=== PATIENT | female | born 1965 | race Caucasian/White ===

== ENCOUNTER 2021-01-28 06:56 | Observation (INO) | payer OTHER ==
[~2021-01-28] VITALS: Ht 12.7 cm; Wt 90.1 kg
--- NOTE | ~2021-01-28 | P ---
[facility] [place] [address] PROCEDURE REPORT Name: PJ HERRON Room #: 210-P [facility].Delta#: [id number] Admission: 01/28/21 Attend Phys: Tim Garcia MD Discharge: 01/29/21 Date of : 61 Report #: [id number] THIS REPORT FOR: cc: Sandra Garvin Pamela D. DO Couchonnal, Luis F. MD ~ DATE OF SERVICE: 01/28/2021 ICD IMPLANTATION PREOPERATIVE DIAGNOSIS: Nonischemic cardiomyopathy. POSTOPERATIVE DIAGNOSIS: Nonischemic cardiomyopathy. HISTORY: The patient is a 55-year-old with history of nonischemic cardiomyopathy, here for ICD implantation for primary prevention of sudden cardiac . ANESTHESIA: The patient underwent MAC anesthesia with no anesthesia related complications. DESCRIPTION OF PROCEDURE: The patient underwent informed consent. We discussed the details of the procedure including the risks, which include but not limited to bleeding, infection, vascular damage, cardiac perforation, and pneumothorax. She understood these risks and is willing to proceed. The patient was brought to EP laboratory in fasting and sedated state, prepped and draped in a sterile fashion, underwent venogram showing patency of left axillary vein and received IV antibiotics prior to initiation of the procedure. Next, lidocaine was injected below the level of left clavicle. Incision was made, pocket was created over the prepectoral fascia and access obtained twice to left axillary vein and sheaths positioned using the modified Seldinger technique. Next, leads were positioned in the right ventricular apex and right atrial appendage both with adequate pacing and sensing thresholds and were sutured to the prepectoral fascia using Ethibond suture. The pocket was then irrigated with vancomycin. Device connected. Tug test performed. Pocket closed in 2 layers using 2-0 for the deep layer, 3-0 for the mid layer and surgical glue was placed to outer skin layer. The patient awoke neurologically and hemodynamically intact. No complications and no significant bleeding. The implanted defibrillator and leads were by [employer]. The defibrillator was a Primo MRI compatible device with a serial #[id number]. Atrial lead was a 5076, 52 cm, serial #[id number]. RV lead was a, 6935, 62 cm, serial #[id number]. Atrial lead demonstrated P-wave of 1 millivolt, pacing impedance 390 ohms, pacing threshold 0.4 volts at 0.4 milliseconds. The RV lead demonstrated R wave of 10 millivolts, pacing impedance of 475 ohms and a pacing threshold of 0.75 [facility] [address] [place] [address] PROCEDURE REPORT Name: PJ HERRON Room #: 210-P [facility]..#: [id number] Admission: 01/28/21 Attend Phys: Tim Garcia MD Discharge: 01/29/21 Date of : 61 Report #: [id number] volts at 0.4 milliseconds. The device was programmed to the DDD 60-130 mode. The VT zone was set at 180-220 beats per minute with 3 rounds of burst followed by 3 rounds of ramp followed by max output shocks. VF zone was set at greater than 220 beats per minute with ATP while charging followed by max output shocks. CONCLUSIONS: Successful ICD implantation. By: [id number] Tim Garcia MD /nt
[~2021-01-28 06:56] MED LIST: ALDACTONE25 MG PO; ASPIRIN EC81 M1 PO; COREG PO; FUROSEMIDE 40 M40 M1 OR; LISINOPRIL20 MG PO; MULTIVITAMINS PO; POTASSIUM20 PO
[2021-01-28 08:30] VITALS: BP 112/67
[2021-01-28] MEDS ORDERED: ZETIA10 MG PO (08:39)
[2021-01-28] MEDS ORDERED: SYNTHROID100 MC1 PO (08:39)
[2021-01-28] MEDS ORDERED: TOPROL XL25 MG PO (08:40)
[2021-01-28] MEDS ORDERED: CRESTOR40 MG PO (08:40)
[2021-01-28] MEDS ORDERED: TRAMADOL 50 MG50 MG PO (08:41)
[2021-01-28 08:42] LABS: BASOPHILS 0.6 % (0.0-2.0); EOSINOPHILS 2.2 % (0.0-3.0); HEMATOCRIT 36.6 % (37.0-47.0); HEMOGLOBIN 11.8 gm/dL (12.0-15.0); LYMPHOCYTES 28.6 % (24.0-44.0); MCH 29.9 pg (26.0-34.0); MCHC 32.2 g/dL (28.0-37.0); MCV 92.9 fL (80.0-100.0); PLATELET COUNT 179 thou/uL (150-400); POLYS 59.6 % (36.0-66.0); RBC 3.94 mil/uL (4.20-5.00); RDW 17.2 % (10.5-14.5); WBC 8.5 thou/uL (4.0-11.0)
[2021-01-28] MEDS ORDERED: COLACE100 MG PO (08:43)
[2021-01-28] MEDS ORDERED: APPLE CIDER VI300 MG PO (08:43)
[2021-01-28 08:51] LABS: CALCIUM 9.1 mg/dL (8.5-10.1); CREATININE 1.8 mg/dL (0.6-1.0); POTASSIUM 3.5 mmol/L (3.5-5.1)
[2021-01-28 08:58] LABS: ALBUMIN 3.5 g/dL (3.4-5.0); TOTAL BILIRUBIN 0.4 mg/dL (0.2-1.0); TOTAL PROTEIN 6.8 g/dL (6.4-8.2)
[2021-01-28 09:04] LABS: APTT 21.5 Seconds (24.5-32.8); INR 0.9; PROTIME 9.6 Seconds (9.3-11.4)
[2021-01-28 12:20] VITALS: BP 115/74
--- NOTE | 2021-01-28 12:28 | NUR ---
RECEIVED PT FROM THE GROUNDS WORKER. PT RECEIVED PPM, DDD/ICD. ADMISSION COMPLETED. PT IS ON 24HR BEDREST. FALL PREACUTIONS IN PLACE.
[2021-01-28 19:54] VITALS: BP 114/65
[2021-01-28 20:00] VITALS: BP 114/65
[2021-01-28 23:16] VITALS: BP 129/77
[2021-01-29] VITALS: BP 129/77
[2021-01-29 04:12] VITALS: BP 130/77
--- NOTE | 2021-01-29 05:58 | NUR ---
ASSUMED PT CARE AT CHANGE OF SHIFT, SR ON THE MONITOR, C/O PAIN TO THE LEFT ARMPIT, PRN PAIN MEDS GIVEN WITH RELIEF,DENIES SOB OR CHEST PALPITATIONS, VSS, PACE MAKER INCERTION SITE TO THE LEFT CHEST INTACT, LEFT HAND IMMOBILIZER ONPT WENT FOR CHEST XRAY, DENIES CONCERNS AT THIS TIME, WILL CONTINUE TO MONITOR AND PASS ON REPORT
[2021-01-29] MEDS ORDERED: COREG6.25 MG PO (07:50)
[2021-01-29 09:30] VITALS: BP 118/70
[2021-01-29 10:55] VITALS: BP 131/90
--- NOTE | 2021-01-29 11:26 | NUR ---
ASSESSMENT CHARTED. PT ALERT AND ORIENTED. VSS. PRN PAIN MED GIVEN WITH PARTIAL RELIEF. LEFT PACEMAKER INCISION C/D/I. NO HEMATOMA NOTED. SEEN BY DR. FULTON ORDERS GIVEN TO DISCHARGE PT TO HOME. DISCHARGE INSRTUCTIONS GIVEN TO PT. PT VERBERLISED UNDERSTANDING.
== END 2021-01-29 11:30 | disposition home or self-care (01) ==
LOC: CATH 06:56 → 2N 12:18 → CATH 14:22 → 2N 01-29 11:30
PROVIDERS: ADMIT Internal Medicine Cardiovascular Disease; ATTEND Internal Medicine Cardiovascular Disease
DX: I42.8 Other cardiomyopathies (principal); I50.31 Acute diastolic (congestive) heart failure; I25.10 Atherosclerotic heart disease of native coronary artery without angina pectoris; I47.1 Supraventricular tachycardia; Z79.82 Long term (current) use of aspirin; Z79.899 Other long term (current) drug therapy